=== PATIENT | female | born 1950 | race Caucasian/White ===

== ENCOUNTER 2017-08-12 17:07 | Emergency (ER) | payer SELFPAY | END 2017-08-12 19:48 | disposition left against medical advice (07) | LOC: FTE 19:48 | DX: Z53.21 Procedure and treatment not carried out due to patient leaving prior to being seen by health care provider (principal) ==

== ENCOUNTER 2018-01-16 11:28 | Emergency (ER) | payer MEDICARE ==
[2018-01-16] MEDS: IBUPROFEN 600 MG TAB PO (13:15)
[2018-01-16] MEDS: TRIMETHOPRIM/SULFAMETHOX (DS) TAB PO (13:15)
[2018-01-16] MEDS: LIDOCAINE 1% (MDV) 20 ML INJ SC (13:16)
[2018-01-16] MEDS: CEFTRIAXONE 1 GM INJ IM (13:16)
== END 2018-01-16 13:57 | disposition home or self-care (01) ==
LOC: FTE 11:28
DX: L03.115 Cellulitis of right lower limb (principal); E11.9 Type 2 diabetes mellitus without complications; I10 Essential (primary) hypertension; M79.604 Pain in right leg
CPT/HCPCS: 93971; 96372; 99284-25